=== PATIENT | male | born 2000 | race Caucasian/White ===

== ENCOUNTER 2018-11-05 20:35 | Emergency (ER) | payer MEDICAID, OTHER ==
[~2018-11-05] VITALS: Ht 162.6 cm; Wt 48.2 kg
[~2018-11-05 20:35] MED LIST: ESCI10TA PO
[2018-11-05] MEDS ORDERED: PERTUSS(ACELL),DIPH,TET VAC/PF 0.5 ML VIAL IM ONE (21:00)
[2018-11-05] MEDS ORDERED: HYDROCODONE/ACETAMINOPHEN 10-325 MG TABLET PO ONE (21:00)
[2018-11-05] MEDS ORDERED: POVIDONE-IODINE 10% 240 ML SOLUTION TP ONE (21:00)
[2018-11-05] MEDS ORDERED: POVIDONE-IODINE 10% 120 ML SOLUTION TP ONE (21:00)
[2018-11-05] MEDS ORDERED: CEPHALEXIN MONOHYDRATE 500 MG CAPSULE PO ONE (21:15)
[2018-11-05] MEDS ORDERED: BACITRACIN 0.9 GM PACKET OINTMENT TP ONE (21:45)
[2018-11-05 21:48] VITALS: BP 125/71
== END 2018-11-05 22:41 | disposition home or self-care (01) ==
LOC: EMS 20:36
DX: S61.411A Laceration without foreign body of right hand, initial encounter (principal); F41.9 Anxiety disorder, unspecified; F17.210 Nicotine dependence, cigarettes, uncomplicated; F12.90 Cannabis use, unspecified, uncomplicated; W22.8XXA Striking against or struck by other objects, initial encounter; Y93.89 Activity, other specified; Y92.89 Other specified places as the place of occurrence of the external cause; Y99.8 Other external cause status
CPT/HCPCS: 12002; 90471; 90715

== ENCOUNTER 2018-11-22 22:06 | Emergency (ER) | payer OTHER ==
[~2018-11-22] VITALS: Ht 162.6 cm; Wt 50.9 kg
[2018-11-23 01:32] VITALS: BP 115/82
== END 2018-11-23 02:43 | disposition home or self-care (01) ==
LOC: EMS 22:07
DX: S61.411D Laceration without foreign body of right hand, subsequent encounter (principal); F41.9 Anxiety disorder, unspecified; F12.90 Cannabis use, unspecified, uncomplicated; F17.210 Nicotine dependence, cigarettes, uncomplicated; Z48.02 Encounter for removal of sutures; X58.XXXD Exposure to other specified factors, subsequent encounter

== ENCOUNTER 2021-03-11 12:52 | Emergency (ER) | payer MEDICAID, OTHER ==
[~2021-03-11] VITALS: Ht 162.6 cm; Wt 59.1 kg
[2021-03-11] MEDS ORDERED: HydrOXYzine PAMOATE 50 MG CAPSULE PO ONE (14:15)
[2021-03-11 15:32] VITALS: BP 125/73
== END 2021-03-11 15:34 | disposition home or self-care (01) ==
LOC: EMS 12:55
DX: F41.9 Anxiety disorder, unspecified (principal); R06.00 Dyspnea, unspecified; F17.210 Nicotine dependence, cigarettes, uncomplicated; F12.90 Cannabis use, unspecified, uncomplicated
CPT/HCPCS: 71045; 93005; 99283

== ENCOUNTER 2022-01-04 21:49 | Inpatient (IN) | payer MEDICAID, OTHER ==
[~2022-01-04] VITALS: Ht 162.6 cm; Wt 54.0 kg
[2022-01-04 23:33] LABS: BASOPHILS % (AUTO) 0.5 % (0.0-2.0); EOSINOPHILS % (AUTO) 0.7 % (1.0-6.0); HEMATOCRIT 38.7 % (41-53); LYMPHOCYTES # (AUTO) 2.3 K/uL (1.0-4.8); LYMPHOCYTES % (AUTO) 22.7 % (22.0-44.0); MEAN CORPUSCULAR HEMOGLOBIN 26.8 pg (26.0-34.0); MEAN CORPUSCULAR HGB CONC 33.7 G/dL (31.0-37.0); MEAN CORPUSCULAR VOLUME 80 fL (80-100); MONOCYTES # (AUTO) 0.8 K/uL (0.1-1.0); MONOCYTES % (AUTO) 8.2 % (2.0-9.0); NEUTROPHILS # (AUTO) 6.8 K/uL (1.8-7.7); NEUTROPHILS % (AUTO) 67.9 % (40.0-70.0); PLATELET COUNT (AUTO) 421 K/uL (150-450); RED BLOOD CELL COUNT(AUTO) 4.87 MIL/uL (4.50-5.90); RED CELL DISTRIBUTION WIDTH 13.3 % (11.5-14.5)
[2022-01-04 23:44] LABS: ANION GAP 5 mmol/L (8-16); CALCIUM, TOTAL 8.9 mg/dL (8.8-10.5); CARBON DIOXIDE 31 mmol/L (22-29); CHLORIDE 98 mmol/L (98-107); CREATININE 1.08 mg/dL (0.60-1.30); GLOMERULAR FILTR. RATE CALC > 60 mL/min (>60); GLUCOSE,RANDOM 209 mg/dL (70-110); POTASSIUM 3.7 mmol/L (3.5-5.1); SODIUM SERUM 134 mmol/L (136-145); UREA NITROGEN, BLOOD 12 mg/dL (7-18)
[2022-01-04 23:51] LABS: ALANINE AMINOTRANSFERASE 8 U/L (12-78); ALBUMIN 4.1 g/dL (3.4-5.0); ALKALINE PHOSPHATASE 66 U/L (46-116); ASPARTATE AMINOTRANSFERASE 10 U/L (15-37); BILIRUBIN,TOTAL 0.4 mg/dL (0.1-1.0); TOTAL PROTEIN, SERUM 7.4 g/dL (6.4-8.2)
[2022-01-05] MEDS ORDERED: HALOPERIDOL 5 MG TABLET PO ONE (02:15)
[2022-01-05] MEDS ORDERED: HALOPERIDOL 5 MG TABLET PO PRN (04:00)
[2022-01-05] MEDS ORDERED: ZOLPIDEM TARTRATE 10 MG TABLET PO PRN (04:00)
[2022-01-05 04:18] LABS: COVID AG,FIA SOURCE NASOPHARYNGEAL
[2022-01-05] MEDS ORDERED: MAGNESIUM HYDROXIDE SUSPENSION 30 ML UDCUP PO PRN (06:30)
[2022-01-05] MEDS ORDERED: MAG HYDROX/AL HYDROX/SIMETH ES 30 ML SUSPENSION UDCUP PO PRN (06:30)
[2022-01-05] MEDS ORDERED: OMEPRAZOLE 20 MG CAPSULE PO PRN (06:30)
[2022-01-05] MEDS ORDERED: DOCUSATE SODIUM 100 MG CAPSULE PO PRN (06:30)
[2022-01-05] MEDS ORDERED: CloNIDine HCL 0.1 MG TABLET PO PRN (06:30)
[2022-01-05] MEDS ORDERED: PETROLATUM,WHITE 28 GM JELLY TP PRN (06:30)
[2022-01-05] MEDS ORDERED: ONDANSETRON HCL 4 MG TABLET PO PRN (06:30)
[2022-01-05] MEDS ORDERED: LOPERAMIDE HCL 2 MG CAPSULE PO PRN (06:30)
[2022-01-05] MEDS ORDERED: BENZOCAINE/MENTHOL LOZENGE PO PRN (06:30)
[2022-01-05] MEDS ORDERED: ALBUTEROL SULFATE HFA 90 MCG/PUFF 8 GM INHALER IH PRN (06:30)
[2022-01-05] MEDS ORDERED: ACETAMINOPHEN 325 MG TABLET PO PRN (06:30)
[2022-01-05] MEDS ORDERED: IBUPROFEN 600 MG TABLET PO PRN (06:30)
[2022-01-05] MEDS ORDERED: BACITRACIN 28 GM OINTMENT TP PRN (06:30)
[2022-01-05 11:11] VITALS: BP 94/62
[2022-01-05] MEDS: LORazepam 2 MG TABLET PO PRN (11:50)
[2022-01-06 06:17] VITALS: BP 106/102
[2022-01-06 07:19] LABS: BASOPHILS % (AUTO) 0.6 % (0.0-2.0); HEMATOCRIT 38.8 % (41-53); HEMOGLOBIN 12.8 g/dL (13.5-17.5); LYMPHOCYTES # (AUTO) 3.1 K/uL (1.0-4.8); LYMPHOCYTES % (AUTO) 38.4 % (22.0-44.0); MEAN CORPUSCULAR HEMOGLOBIN 26.7 pg (26.0-34.0); MEAN CORPUSCULAR VOLUME 81 fL (80-100); MONOCYTES # (AUTO) 0.6 K/uL (0.1-1.0); MONOCYTES % (AUTO) 8.2 % (2.0-9.0); NEUTROPHILS # (AUTO) 4.1 K/uL (1.8-7.7); NEUTROPHILS % (AUTO) 51.8 % (40.0-70.0); PLATELET COUNT (AUTO) 384 K/uL (150-450); RED BLOOD CELL COUNT(AUTO) 4.81 MIL/uL (4.50-5.90); RED CELL DISTRIBUTION WIDTH 13.5 % (11.5-14.5)
[2022-01-06 07:32] LABS: HEMOGLOBIN A1C 4.6 % (3.8-5.6)
[2022-01-06 07:55] LABS: ALANINE AMINOTRANSFERASE 7 U/L (12-78); ALBUMIN 3.8 g/dL (3.4-5.0); ALKALINE PHOSPHATASE 54 U/L (46-116); ANION GAP 7 mmol/L (8-16); ASPARTATE AMINOTRANSFERASE 9 U/L (15-37); BILIRUBIN,TOTAL 0.7 mg/dL (0.1-1.0); CALCIUM, TOTAL 9.1 mg/dL (8.8-10.5); CARBON DIOXIDE 30 mmol/L (22-29); CHLORIDE 103 mmol/L (98-107); CREATININE 0.93 mg/dL (0.60-1.30); GLOMERULAR FILTR. RATE CALC > 60 mL/min (>60); GLUCOSE,RANDOM 79 mg/dL (70-110); PHOSPHORUS 4.5 mg/dL (2.5-4.9); SODIUM SERUM 140 mmol/L (136-145); UREA NITROGEN, BLOOD 10 mg/dL (7-18)
[2022-01-06] MEDS: LORazepam 2 MG TABLET PO PRN ×2 (08:28→12:58)
[2022-01-06 09:48] VITALS: BP 102/68
[2022-01-06 16:04] VITALS: BP 99/64
[2022-01-06] MEDS: RisperiDONE 3 MG TABLET PO SCH (16:23)
[2022-01-07 00:48] VITALS: BP 101/62
[2022-01-07] MEDS: LORazepam 2 MG TABLET PO PRN ×2 (06:34→19:24)
[2022-01-07 08:03] LABS: APPEARANCE,URINE CLEAR (CLEAR); BILIRUBIN,URINE NEGATIVE (NEGATIVE); GLUCOSE, URINE (UA) NEGATIVE (NEGATIVE); KETONES,URINE NEGATIVE (NEGATIVE); LEUKOCYTE ESTERASE ,URINE NEGATIVE (NEGATIVE); NITRATE,URINE NEGATIVE (NEGATIVE); OCCULT BLOOD,URINE NEGATIVE (NEGATIVE); PROTEIN,URINE NEGATIVE (NEGATIVE); SPECIFIC GRAVITIY, URINE 1.021 (1.003-1.030); UROBILINOGEN,URINE <=1.0 mg/dL (<=1.0)
[2022-01-07 08:05] VITALS: BP 106/65
[2022-01-07 08:09] LABS: AMPHET/METH SCREEN,URINE NEGATIVE (NEGATIVE); BARBITURATE SCREEN, URINE NEGATIVE (NEGATIVE); BENZODIAZEPINES SCREEN,URINE NEGATIVE (NEGATIVE); CANNABINOID SCREEN,URINE NEGATIVE (NEGATIVE); COCAINE SCREEN,URINE NEGATIVE (NEGATIVE); METHADONE SCREEN, URINE NEGATIVE (NEGATIVE); OPIATE SCREEN,URINE NEGATIVE (NEGATIVE)
[2022-01-07 08:13] LABS: PHENCYCLIDINE SCREEN,URINE NEGATIVE (NEGATIVE)
[2022-01-07] MEDS: RisperiDONE 3 MG TABLET PO SCH ×2 (08:32→16:02)
[2022-01-07 16:02] VITALS: BP 98/65
[2022-01-07 19:24] VITALS: BP 110/65
[2022-01-08 05:24] VITALS: BP 108/62
[2022-01-08 08:12] VITALS: BP_SYST 105; BP_SYST 93; BP_DIAS 51; BP_DIAS 65
[2022-01-08] MEDS: RisperiDONE 3 MG TABLET PO SCH ×2 (08:44→16:46)
[2022-01-08 16:08] VITALS: BP 100/61
[2022-01-08] MEDS: LORazepam 2 MG TABLET PO PRN (18:40)
[2022-01-08 19:17] VITALS: BP 110/74
[2022-01-09 06:05] VITALS: BP 106/68
[2022-01-09] MEDS: RisperiDONE 3 MG TABLET PO SCH ×2 (08:17→16:20)
[2022-01-09 08:33] VITALS: BP 101/66
[2022-01-09] MEDS: LORazepam 2 MG TABLET PO PRN (11:11)
[2022-01-09] MEDS ORDERED: RISP3TAB35 PO (15:38)
[2022-01-09 16:09] VITALS: BP 105/70
[2022-01-09] MEDS ORDERED: DIVA-112 PO (16:18)
== END 2022-01-09 18:38 | disposition home or self-care (01) | DRG 750 ==
LOC: EMS 21:49 → B2S 01-05 05:00
PROVIDERS: ADMIT Psychiatry & Neurology Psychiatry; ATTEND Psychiatry & Neurology Psychiatry
DX: F25.9 Schizoaffective disorder, unspecified (principal); F12.90 Cannabis use, unspecified, uncomplicated; F19.10 Other psychoactive substance abuse, uncomplicated; G47.00 Insomnia, unspecified; K59.00 Constipation, unspecified; Z91.14 Patient's other noncompliance with medication regimen; Z71.6 Tobacco abuse counseling
CPT/HCPCS: 80053; 81003; 83036; 83735; 84100; 85025; 93005; 99285; G0480; J3535

== ENCOUNTER 2022-07-26 23:31 | Inpatient (IN) | payer MEDICAID ==
[~2022-07-26] VITALS: Ht 152.4 cm; Wt 43.5 kg
[~2022-07-26 23:31] MED LIST changes: +DIVA-112 PO; -ESCI10TA PO; +RISP3TAB35 PO
[2022-07-27 01:32] LABS: BASOPHILS % (AUTO) 0.4 % (0.0-2.0); EOSINOPHILS % (AUTO) 0.3 % (1.0-6.0); HEMOGLOBIN 12.8 g/dL (13.5-17.5); LYMPHOCYTES # (AUTO) 1.5 K/uL (1.0-4.8); LYMPHOCYTES % (AUTO) 10.8 % (22.0-44.0); MEAN CORPUSCULAR HEMOGLOBIN 26.4 pg (26.0-34.0); MEAN CORPUSCULAR HGB CONC 32.8 G/dL (31.0-37.0); MEAN CORPUSCULAR VOLUME 81 fL (80-100); MONOCYTES % (AUTO) 7.2 % (2.0-9.0); NEUTROPHILS # (AUTO) 11.1 K/uL (1.8-7.7); NEUTROPHILS % (AUTO) 81.3 % (40.0-70.0); PLATELET COUNT (AUTO) 452 K/uL (150-450); RED BLOOD CELL COUNT(AUTO) 4.85 MIL/uL (4.50-5.90); RED CELL DISTRIBUTION WIDTH 12.8 % (11.5-14.5)
[2022-07-27 01:40] LABS: ANION GAP 6 mmol/L (8-16); CALCIUM, TOTAL 9.2 mg/dL (8.8-10.5); CARBON DIOXIDE 32 mmol/L (22-29); CHLORIDE 104 mmol/L (98-107); CREATININE 1.14 mg/dL (0.60-1.30); GLUCOSE,RANDOM 100 mg/dL (70-110); POTASSIUM 3.3 mmol/L (3.5-5.1); SODIUM SERUM 142 mmol/L (136-145); UREA NITROGEN, BLOOD 14 mg/dL (7-18)
[2022-07-27 01:46] LABS: ALANINE AMINOTRANSFERASE 10 U/L (12-78); ALBUMIN 3.9 g/dL (3.4-5.0); ALKALINE PHOSPHATASE 60 U/L (46-116); ASPARTATE AMINOTRANSFERASE 10 U/L (15-37); BILIRUBIN,TOTAL 0.3 mg/dL (0.1-1.0); TOTAL PROTEIN, SERUM 7.1 g/dL (6.4-8.2)
[2022-07-27 01:49] LABS: GLOMERULAR FILTR. RATE CALC > 60 mL/min (>60)
[2022-07-27] MEDS ORDERED: POTASSIUM CHLORIDE 20 MEQ ER TABLET PO ONE (07:45)
[2022-07-27 09:09] LABS: COVID AG,FIA SOURCE NASAL SWAB
[2022-07-27 10:57] VITALS: BP 100/56
[2022-07-27] MEDS: RisperiDONE 3 MG TABLET PO SCH (16:14)
[2022-07-27] MEDS: DIVALPROEX SODIUM 500 MG DR TABLET PO SCH (16:14)
[2022-07-27] MEDS: LORazepam 2 MG TABLET PO PRN (17:31)
[2022-07-28 08:56] VITALS: BP 98/55
[2022-07-28] MEDS: RisperiDONE 3 MG TABLET PO SCH ×2 (08:58→16:18)
[2022-07-28] MEDS: DIVALPROEX SODIUM 500 MG DR TABLET PO SCH ×2 (08:58→16:18)
[2022-07-28 16:21] VITALS: BP 96/58
[2022-07-28] MEDS: ZOLPIDEM TARTRATE 10 MG TABLET PO PRN (20:15)
[2022-07-29 08:30] VITALS: BP 98/59
[2022-07-29] MEDS: RisperiDONE 3 MG TABLET PO SCH ×2 (09:39→16:35)
[2022-07-29] MEDS: DIVALPROEX SODIUM 500 MG DR TABLET PO SCH ×2 (09:39→16:35)
[2022-07-29] MEDS: LORazepam 2 MG TABLET PO PRN ×2 (16:03→21:47)
[2022-07-29 16:39] VITALS: BP 99/60
[2022-07-29] MEDS: ZOLPIDEM TARTRATE 10 MG TABLET PO PRN (21:47)
[2022-07-30 07:13] LABS: BASOPHILS % (AUTO) 0.7 % (0.0-2.0); EOSINOPHILS % (AUTO) 0.8 % (1.0-6.0); HEMATOCRIT 36.3 % (41-53); LYMPHOCYTES # (AUTO) 2.6 K/uL (1.0-4.8); LYMPHOCYTES % (AUTO) 32.1 % (22.0-44.0); MEAN CORPUSCULAR HEMOGLOBIN 26.6 pg (26.0-34.0); MEAN CORPUSCULAR HGB CONC 32.9 G/dL (31.0-37.0); MEAN CORPUSCULAR VOLUME 81 fL (80-100); MONOCYTES # (AUTO) 0.7 K/uL (0.1-1.0); MONOCYTES % (AUTO) 9.2 % (2.0-9.0); NEUTROPHILS # (AUTO) 4.6 K/uL (1.8-7.7); NEUTROPHILS % (AUTO) 57.2 % (40.0-70.0); PLATELET COUNT (AUTO) 396 K/uL (150-450); RED CELL DISTRIBUTION WIDTH 12.6 % (11.5-14.5)
[2022-07-30 08:00] VITALS: BP 102/52
[2022-07-30] MEDS: DIVALPROEX SODIUM 500 MG DR TABLET PO SCH ×2 (08:06→17:13)
[2022-07-30] MEDS: RisperiDONE 3 MG TABLET PO SCH ×2 (08:06→17:13)
[2022-07-30 19:04] VITALS: BP 112/69
[2022-07-30] MEDS: HALOPERIDOL 5 MG TABLET PO PRN (20:35)
[2022-07-30] MEDS: ZOLPIDEM TARTRATE 10 MG TABLET PO PRN (20:35)
[2022-07-31] MEDS: RisperiDONE 3 MG TABLET PO SCH ×2 (08:04→16:23)
[2022-07-31] MEDS: DIVALPROEX SODIUM 500 MG DR TABLET PO SCH ×2 (08:04→16:23)
[2022-07-31 08:58] VITALS: BP 98/71
[2022-07-31 14:15] VITALS: BP 116/70
[2022-07-31] MEDS: LORazepam 2 MG TABLET PO PRN (14:18)
[2022-07-31 16:20] VITALS: BP 121/76
[2022-08-01 08:16] VITALS: BP 97/71
[2022-08-01] MEDS: RisperiDONE 3 MG TABLET PO SCH ×2 (08:39→16:39)
[2022-08-01] MEDS: DIVALPROEX SODIUM 500 MG DR TABLET PO SCH ×2 (08:39→16:39)
[2022-08-01 16:04] VITALS: BP 92/60
[2022-08-02] MEDS: RisperiDONE 3 MG TABLET PO SCH ×2 (08:58→17:14)
[2022-08-02] MEDS: DIVALPROEX SODIUM 500 MG DR TABLET PO SCH ×2 (08:58→17:14)
[2022-08-02 09:57] VITALS: BP 92/56
[2022-08-02] MEDS: LORazepam 2 MG TABLET PO PRN (15:05)
[2022-08-02 17:53] VITALS: BP 97/64
[2022-08-02] MEDS: ZOLPIDEM TARTRATE 10 MG TABLET PO PRN (21:48)
[2022-08-03] MEDS: RisperiDONE 3 MG TABLET PO SCH ×2 (08:43→16:56)
[2022-08-03] MEDS: DIVALPROEX SODIUM 500 MG DR TABLET PO SCH ×2 (08:43→16:56)
[2022-08-03 09:43] VITALS: BP 92/56
[2022-08-03] MEDS: LORazepam 2 MG TABLET PO PRN (15:02)
[2022-08-03 17:39] VITALS: BP 94/62
[2022-08-03] MEDS ORDERED: RisperiDONE MICROSPHERES 50 MG/2 ML SYRINGE IM ONE (18:00)
[2022-08-03] MEDS: ZOLPIDEM TARTRATE 10 MG TABLET PO PRN (21:20)
[2022-08-03 21:57] LABS: COVID AG,FIA SOURCE NASAL SWAB
[2022-08-04 08:34] VITALS: BP 92/60
[2022-08-04] MEDS: DIVALPROEX SODIUM 500 MG DR TABLET PO SCH ×2 (12:05→16:15)
[2022-08-04] MEDS: RisperiDONE 3 MG TABLET PO SCH ×2 (12:05→16:15)
[2022-08-04] MEDS: LORazepam 2 MG TABLET PO PRN (13:23)
[2022-08-04] MEDS: HALOPERIDOL 5 MG TABLET PO PRN (13:24)
[2022-08-04] MEDS ORDERED: RISPC50 IM (14:28)
[2022-08-04] MEDS ORDERED: DIVA-112 PO (14:28)
[2022-08-04 16:33] VITALS: BP 90/55
[2022-08-17] MEDS ORDERED: RisperiDONE MICROSPHERES 50 MG/2 ML SYRINGE IM SCH (09:00)
== END 2022-08-04 18:38 | disposition home or self-care (01) | DRG 750 ==
LOC: EMS 23:34 → 3EC 07-27 06:41
PROVIDERS: ADMIT Psychiatry & Neurology Psychiatry; ATTEND Psychiatry & Neurology Psychiatry
DX: F25.9 Schizoaffective disorder, unspecified (principal); R45.850 Homicidal ideations; R45.851 Suicidal ideations; E87.6 Hypokalemia; Z20.822 Contact with and (suspected) exposure to COVID-19; F41.9 Anxiety disorder, unspecified; G47.00 Insomnia, unspecified; K21.9 Gastro-esophageal reflux disease without esophagitis; F19.10 Other psychoactive substance abuse, uncomplicated; Z72.0 Tobacco use
CPT/HCPCS: 80053; 80164; 84132; 85025; 99285; G0480; J2794

== ENCOUNTER 2022-08-06 00:12 | Emergency (ER) | payer MEDICAID, OTHER ==
[~2022-08-06] VITALS: Ht 162.6 cm; Wt 50.0 kg
[~2022-08-06 00:12] MED LIST changes: -RISP3TAB35 PO; +RISPC50 IM
[2022-08-06 01:20] VITALS: BP 116/65
== END 2022-08-06 01:44 | disposition home or self-care (01) ==
LOC: EMS 00:13
DX: R07.9 Chest pain, unspecified (principal); R20.2 Paresthesia of skin; F32.9 Major depressive disorder, single episode, unspecified; F41.9 Anxiety disorder, unspecified; F10.20 Alcohol dependence, uncomplicated; F12.90 Cannabis use, unspecified, uncomplicated; F17.210 Nicotine dependence, cigarettes, uncomplicated
CPT/HCPCS: 93005; 99283

== ENCOUNTER 2022-08-08 22:26 | Emergency (ER) | payer OTHER ==
[~2022-08-08] VITALS: Ht 162.6 cm; Wt 44.1 kg
[2022-08-08 22:31] VITALS: BP 100/65
[2022-08-08 23:19] LABS: COVID AG,FIA SOURCE NASAL SWAB
[2022-08-08 23:38] LABS: INFLUENZA TYPE A NEGATIVE FOR TYPE A (NEGATIVE); INFLUENZA TYPE B NEGATIVE FOR TYPE B (NEGATIVE)
== END 2022-08-09 | disposition home or self-care (01) ==
LOC: EMS 22:27
DX: R06.02 Shortness of breath (principal); F41.9 Anxiety disorder, unspecified; F32.A Depression, unspecified; F20.9 Schizophrenia, unspecified; F17.210 Nicotine dependence, cigarettes, uncomplicated; F12.90 Cannabis use, unspecified, uncomplicated; Z20.822 Contact with and (suspected) exposure to COVID-19
CPT/HCPCS: 71045; 87804; 99284

== ENCOUNTER 2023-08-23 15:29 | Emergency (ER) | payer OTHER ==
[~2023-08-23] VITALS: Ht 162.6 cm; Wt 55.9 kg
[2023-08-23] MEDS ORDERED: TRAZ-252 PO (16:00)
[2023-08-23] MEDS ORDERED: OLAN10TA74 PO (16:00)
[2023-08-23] MEDS ORDERED: HYDR-4527 PO (16:00)
[2023-08-23 16:15] VITALS: TEMP 98
[2023-08-23 17:44] LABS: ALCOHOL, URINE DRUG SCREEN NEGATIVE (NEGATIVE); AMPHET/METH SCREEN,URINE NEGATIVE (NEGATIVE); BARBITURATE SCREEN, URINE NEGATIVE (NEGATIVE); BENZODIAZEPINES SCREEN,URINE NEGATIVE (NEGATIVE); CANNABINOID SCREEN,URINE NEGATIVE (NEGATIVE); COCAINE SCREEN,URINE NEGATIVE (NEGATIVE); METHADONE SCREEN, URINE NEGATIVE (NEGATIVE); OPIATE SCREEN,URINE NEGATIVE (NEGATIVE); PHENCYCLIDINE SCREEN,URINE NEGATIVE (NEGATIVE)
[2023-08-23 17:55] LABS: BASOPHILS % (AUTO) 0.3 % (0.0-2.0); EOSINOPHILS % (AUTO) 0.2 % (1.0-6.0); HEMATOCRIT 42.1 % (41-53); HEMOGLOBIN 13.9 g/dL (13.5-17.5); LYMPHOCYTES # (AUTO) 1.8 K/uL (1.0-4.8); LYMPHOCYTES % (AUTO) 15.6 % (22.0-44.0); MEAN CORPUSCULAR HEMOGLOBIN 26.7 pg (26.0-34.0); MEAN CORPUSCULAR HGB CONC 33.1 G/dL (31.0-37.0); MEAN CORPUSCULAR VOLUME 81 fL (80-100); MONOCYTES # (AUTO) 0.7 K/uL (0.1-1.0); MONOCYTES % (AUTO) 5.9 % (2.0-9.0); PLATELET COUNT (AUTO) 395 K/uL (150-450); RED BLOOD CELL COUNT(AUTO) 5.21 MIL/uL (4.50-5.90); RED CELL DISTRIBUTION WIDTH 12.6 % (11.5-14.5); WHITE BLOOD COUNT (AUTO) 11.5 K/uL (4.5-11.0)
[2023-08-23 18:00] LABS: ALCOHOL, BLOOD (SERUM) < 3 mg/dL (0-10); ANION GAP 2 mmol/L (8-16); CALCIUM, TOTAL 9.3 mg/dL (8.8-10.5); CARBON DIOXIDE 33 mmol/L (22-29); CHLORIDE 101 mmol/L (98-107); CREATININE 1.22 mg/dL (0.60-1.30); GLOMERULAR FILTR. RATE CALC > 60 mL/min (>60); GLUCOSE,RANDOM 93 mg/dL (70-110); POTASSIUM 4.1 mmol/L (3.5-5.1); SODIUM SERUM 136 mmol/L (136-145); UREA NITROGEN, BLOOD 16 mg/dL (7-18)
[2023-08-23 18:06] LABS: ALANINE AMINOTRANSFERASE 20 U/L (12-78); ALBUMIN 4.1 g/dL (3.4-5.0); ALKALINE PHOSPHATASE 96 U/L (46-116); ASPARTATE AMINOTRANSFERASE 20 U/L (15-37); BILIRUBIN,TOTAL 0.3 mg/dL (0.1-1.0); TOTAL PROTEIN, SERUM 8.3 g/dL (6.4-8.2)
[2023-08-23 18:28] LABS: COVID AG,FIA SOURCE NASAL SWAB
[2023-08-23 18:35] LABS: SARS-COV2 (COVID) ANTIGEN,FIA Negative (Negative)
[2023-08-23 19:45] VITALS: BP 104/48; PULSE 80; RESP 16
== END 2023-08-23 19:45 | disposition home or self-care (01) ==
LOC: EMS 15:34
DX: S60.221A Contusion of right hand, initial encounter (principal); F20.9 Schizophrenia, unspecified; F41.9 Anxiety disorder, unspecified; F32.A Depression, unspecified; F17.210 Nicotine dependence, cigarettes, uncomplicated; F12.90 Cannabis use, unspecified, uncomplicated; Z20.822 Contact with and (suspected) exposure to COVID-19; X58.XXXA Exposure to other specified factors, initial encounter; Y93.89 Activity, other specified; Y92.89 Other specified places as the place of occurrence of the external cause; Y99.8 Other external cause status
CPT/HCPCS: 99285; 87426; 80053; 85025; 36415; 73130; 80307; G0480

== ENCOUNTER 2023-11-03 21:41 | Inpatient (IN) | payer MEDICAID ==
[~2023-11-03] VITALS: Ht 160 cm; Wt 56.7 kg
[~2023-11-03 21:41] MED LIST changes: -DIVA-112 PO; +HYDR-4527 PO; +OLAN10TA74 PO; -RISPC50 IM; +TRAZ-252 PO
[2023-11-03 23:49] VITALS: BP 106/80; PULSE 96; RESP 18; TEMP 98.4
[2023-11-03 23:55] VITALS: BP 105/72; PULSE 98; RESP 16; TEMP 98.4; O2SAT 99
[2023-11-03 23:57] LABS: GLUCOMETER DEV NAME(LOC) POC.BV; POC SARS-COV2 AG, FIA NEGATIVE (NEGATIVE)
[2023-11-04] MEDS: ZOLPIDEM TARTRATE 10 MG TABLET PO PRN (00:05)
[2023-11-04] MEDS: LORazepam 2 MG TABLET PO PRN (00:06)
[2023-11-04] MEDS: HALOPERIDOL 5 MG TABLET PO PRN (07:57)
[2023-11-04 09:18] LABS: BASOPHILS % (AUTO) 0.6 % (0.0-2.0); EOSINOPHILS % (AUTO) 1.4 % (1.0-6.0); HEMATOCRIT 42.9 % (41-53); HEMOGLOBIN 14.1 g/dL (13.5-17.5); LYMPHOCYTES # (AUTO) 3.2 K/uL (1.0-4.8); LYMPHOCYTES % (AUTO) 32.5 % (22.0-44.0); MEAN CORPUSCULAR HEMOGLOBIN 27.5 pg (26.0-34.0); MEAN CORPUSCULAR VOLUME 83 fL (80-100); MONOCYTES % (AUTO) 9.8 % (2.0-9.0); NEUTROPHILS # (AUTO) 5.6 K/uL (1.8-7.7); NEUTROPHILS % (AUTO) 55.7 % (40.0-70.0); PLATELET COUNT (AUTO) 428 K/uL (150-450); RED BLOOD CELL COUNT(AUTO) 5.15 MIL/uL (4.50-5.90); RED CELL DISTRIBUTION WIDTH 14.6 % (11.5-14.5)
[2023-11-04 09:40] LABS: ALCOHOL, BLOOD (SERUM) < 3 mg/dL (0-10)
[2023-11-04 09:43] LABS: ALANINE AMINOTRANSFERASE 12 U/L (12-78); ALBUMIN 3.7 g/dL (3.4-5.0); ALKALINE PHOSPHATASE 78 U/L (46-116); ANION GAP 8 mmol/L (8-16); ASPARTATE AMINOTRANSFERASE 17 U/L (15-37); BILIRUBIN,TOTAL 0.3 mg/dL (0.1-1.0); CARBON DIOXIDE 31 mmol/L (22-29); CHLORIDE 100 mmol/L (98-107); CHOL/HDL RATIO 2.7 (4.2-7.3); CHOLESTEROL 150 mg/dL (131-200); FREE T4 (FREE THYROXINE) 1.09 ng/dL (0.76-1.46); GLOMERULAR FILTR. RATE CALC > 60 mL/min (>60); GLUCOSE,RANDOM 81 mg/dL (70-110); HDL CHOLESTEROL 55 mg/dL (40-60); HEMOGLOBIN A1C 4.3 % (3.8-5.6); LDL CHOL (CALC.) 84 mg/dL (0-130); SODIUM SERUM 139 mmol/L (136-145); THYROID STIMULATING HORMONE 1.51 uIU/mL (0.36-3.74); TOTAL PROTEIN, SERUM 6.9 g/dL (6.4-8.2); TRIGLYCERIDES 57 mg/dL (15-150); UREA NITROGEN, BLOOD 11 mg/dL (7-18)
[2023-11-04 12:21] VITALS: BP 109/58; PULSE 106; RESP 16; TEMP 97.7; O2SAT 97
[2023-11-04] MEDS: OLANZapine 10 MG TABLET PO SCH (16:13)
[2023-11-04] MEDS: TraZODone HCL 50 MG TABLET PO PRN (20:47)
[2023-11-04 20:50] VITALS: BP 123/69; PULSE 96; RESP 18; TEMP 97.7; O2SAT 97
[2023-11-05] MEDS ORDERED: CLIN30GE22 TP (11:10)
[2023-11-05] MEDS ORDERED: HYDR-4808 PO (11:10)
[2023-11-05] MEDS ORDERED: TRET20CR32 TP (11:10)
[2023-11-05 11:17] VITALS: PULSE 87; RESP 16; TEMP 97.7; O2SAT 96
[2023-11-05] MEDS: TraZODone HCL 50 MG TABLET PO SCH (20:15)
[2023-11-05 21:31] VITALS: BP 102/62; PULSE 92; RESP 18; TEMP 97.6; O2SAT 97
[2023-11-05 21:35] VITALS: BP 108/62
[2023-11-06 10:17] VITALS: BP 100/64; PULSE 88; RESP 17; TEMP 98; O2SAT 98
[2023-11-06 18:40] VITALS: BP 125/75; PULSE 113; RESP 20; TEMP 97.8
[2023-11-06 18:55] VITALS: BP_SYST 110; PULSE 97; RESP 18; TEMP 98.5
[2023-11-06 23:08] VITALS: BP 113/68; PULSE 93; RESP 18; TEMP 97.8; O2SAT 97
[2023-11-07 09:28] VITALS: BP 112/63; PULSE 72; RESP 16; TEMP 98.4; O2SAT 97
[2023-11-07 21:23] VITALS: BP 116/70; PULSE 74; RESP 17; TEMP 98.2; O2SAT 98
[2023-11-08 08:11] VITALS: BP 102/69; PULSE 75; RESP 19; TEMP 98.1; O2SAT 98
[2023-11-08 09:20] LABS: PH,URINE DRUG SCREEN 6.5 (5.0-8.0)
[2023-11-08 09:28] LABS: ALCOHOL, URINE DRUG SCREEN NEGATIVE (NEGATIVE); AMPHET/METH SCREEN,URINE NEGATIVE (NEGATIVE); BARBITURATE SCREEN, URINE NEGATIVE (NEGATIVE); BENZODIAZEPINES SCREEN,URINE NEGATIVE (NEGATIVE); CANNABINOID SCREEN,URINE NEGATIVE (NEGATIVE); COCAINE SCREEN,URINE NEGATIVE (NEGATIVE); METHADONE SCREEN, URINE NEGATIVE (NEGATIVE); OPIATE SCREEN,URINE NEGATIVE (NEGATIVE); PHENCYCLIDINE SCREEN,URINE NEGATIVE (NEGATIVE)
[2023-11-08 21:04] VITALS: BP 118/71; PULSE 97; RESP 18; TEMP 98; O2SAT 97
[2023-11-09 10:36] VITALS: BP 100/65; PULSE 90; RESP 16; TEMP 97.6; O2SAT 98
[2023-11-09] MEDS: INFLUENZA VIRUS VACCINE QVS 2023-24 (6MO+)/PF 60 MCG/0.5 ML SYRINGE IM. ONE (12:04)
[2023-11-10 05:35] VITALS: BP 110/72; PULSE 86; RESP 18; TEMP 98
[2023-11-10 08:03] VITALS: BP 111/63; PULSE 83; RESP 17; TEMP 98; O2SAT 99
[2023-11-10 20:04] VITALS: BP 108/86; PULSE 94; RESP 18; TEMP 97.7; O2SAT 98
[2023-11-11 08:05] VITALS: BP 104/60; PULSE 75; RESP 18; TEMP 97.6; O2SAT 98
[2023-11-11] MEDS ORDERED: NICOTINE 14 MG/24 HOUR PATCH TD PRN (18:45)
[2023-11-11] MEDS ORDERED: CloNIDine HCL 0.1 MG TABLET PO PRN (18:45)
[2023-11-11] MEDS ORDERED: LOPERAMIDE HCL 2 MG CAPSULE PO PRN (18:45)
[2023-11-11] MEDS ORDERED: ONDANSETRON HCL 4 MG TABLET PO PRN (18:45)
[2023-11-11] MEDS ORDERED: IBUPROFEN 400 MG TABLET PO PRN (18:45)
[2023-11-11] MEDS ORDERED: DOCUSATE SODIUM 100 MG CAPSULE PO PRN (18:45)
[2023-11-11] MEDS ORDERED: MAGNESIUM HYDROXIDE SUSPENSION 30 ML UDCUP PO PRN (18:45)
[2023-11-11] MEDS ORDERED: GuaiFENesin/D-METHORPHAN [SUGAR-FREE] 200-20MG/10 ML SYRUP UDCUP PO PRN (18:45)
[2023-11-11] MEDS ORDERED: PETROLATUM,WHITE 28 GM JELLY TP PRN (18:45)
[2023-11-11] MEDS ORDERED: ALBUTEROL SULFATE HFA 90 MCG/PUFF 8 GM INHALER IH PRN (18:45)
[2023-11-11] MEDS ORDERED: MAG HYDROX/ALUMINUM HYD/SIMETH ES 30 ML SUSPENSION UDCUP PO PRN (18:45)
[2023-11-11 20:06] VITALS: BP 104/57; PULSE 78; RESP 18; TEMP 98.2; O2SAT 96
[2023-11-11 20:50] VITALS: RESP 18
[2023-11-11] MEDS: ACETAMINOPHEN 325 MG TABLET PO PRN (20:59)
[2023-11-11 21:50] VITALS: RESP 18
[2023-11-12 08:30] VITALS: BP 109/68; PULSE 85; RESP 18; TEMP 96.9; O2SAT 95
[2023-11-12] MEDS: TraZODone HCL 100 MG TABLET PO SCH (20:18)
[2023-11-12] MEDS: OLANZapine 7.5 MG TABLET PO SCH (20:18)
[2023-11-12 21:47] VITALS: BP 101/68; PULSE 65; RESP 16; TEMP 97.6; O2SAT 95
[2023-11-13 08:21] VITALS: BP 108/68; PULSE 78; RESP 18; TEMP 97.8
== END 2023-11-13 18:23 | disposition left against medical advice (07) | DRG 750 ==
LOC: B3A 23:09 → B2S 11-06 23:11
PROVIDERS: ADMIT Psychiatry & Neurology Psychiatry; ATTEND Psychiatry & Neurology Psychiatry
PROC: GZHZZZZ Group Psychotherapy (ICD-10-PCS; principal; 2023-11-04)
PROC: GZ56ZZZ Individual Psychotherapy, Supportive (ICD-10-PCS; 2023-11-04)
DX: F20.0 Paranoid schizophrenia (principal); F10.10 Alcohol abuse, uncomplicated; F15.90 Other stimulant use, unspecified, uncomplicated; G47.00 Insomnia, unspecified; F12.90 Cannabis use, unspecified, uncomplicated; Z20.822 Contact with and (suspected) exposure to COVID-19; Z53.29 Procedure and treatment not carried out because of patient's decision for other reasons; Y90.9 Presence of alcohol in blood, level not specified; Z79.899 Other long term (current) drug therapy; Z91.51 Personal history of suicidal behavior
CPT/HCPCS: 80053; 80061; 80307; 83036; 84439; 84443; 85025; G0480

== ENCOUNTER 2024-10-19 06:59 | Emergency (ER) | payer MEDICAID, OTHER ==
[~2024-10-19] VITALS: Ht 165.1 cm; Wt 68.2 kg
[2024-10-19 07:33] LABS: COVID AG,FIA SOURCE NASAL SWAB
[2024-10-19 08:05] LABS: SARS-COV2 (COVID) ANTIGEN,FIA Negative (Negative)
[2024-10-19 08:12] LABS: INFLUENZA TYPE B NEGATIVE FOR TYPE B (NEGATIVE)
[2024-10-19 08:17] LABS: INFLUENZA TYPE A POSITIVE FOR TYPE A (NEGATIVE)
[2024-10-19] MEDS: ONDANSETRON HCL 4 MG/2 ML VIAL IVP ONE (11:15)
[2024-10-19] MEDS: SODIUM CHLORIDE 0.9% 500 ML IV ONE (11:16)
[2024-10-19] MEDS: IBUPROFEN 600 MG TABLET PO ONE (11:46)
[2024-10-19] MEDS: ACETAMINOPHEN 650 MG/20.3 ML SOLUTION UDCUP PO ONE (11:46)
[2024-10-19] MEDS: ALBUTEROL SULFATE 2.5 MG/0.5 ML NEB SOLUTION NEB ONE (12:46)
[2024-10-19] MEDS: IPRATROPIUM BROMIDE 0.5 MG/2.5 ML NEB SOLUTION NEB ONE (12:46)
[2024-10-19 13:00] VITALS: PULSE 126; RESP 16; O2SAT 97
[2024-10-19 13:04] VITALS: PULSE 126; RESP 16; O2SAT 95
[2024-10-19] MEDS ORDERED: OSEL75CA45 PO (14:36)
[2024-10-19] MEDS ORDERED: AZIT250T9 PO (14:40)
[2024-10-19 15:52] VITALS: BP 115/70; PULSE 95; RESP 16; TEMP 99; O2SAT 95
== END 2024-10-19 15:55 | disposition home or self-care (01) ==
LOC: EMS 06:59
DX: J10.1 Influenza due to other identified influenza virus with other respiratory manifestations (principal); J98.4 Other disorders of lung; F20.9 Schizophrenia, unspecified; F41.9 Anxiety disorder, unspecified; F32.A Depression, unspecified; F12.90 Cannabis use, unspecified, uncomplicated; F17.210 Nicotine dependence, cigarettes, uncomplicated; Z20.822 Contact with and (suspected) exposure to COVID-19
CPT/HCPCS: 99285; 96374; 71045; 96361; 87426; 87804; 94640; J2405; J7040

== ENCOUNTER 2024-10-24 01:49 | Emergency (ER) | payer OTHER ==
[~2024-10-24] VITALS: Ht 162.6 cm; Wt 67.7 kg
[~2024-10-24 01:49] MED LIST changes: +AZIT250T9 PO; -HYDR-4527 PO; -OLAN10TA74 PO; +OSEL75CA45 PO; -TRAZ-252 PO
[2024-10-24 02:01] VITALS: BP 116/67; PULSE 104; RESP 18; TEMP 98.6; O2SAT 99
[2024-10-24] MEDS: ONDANSETRON 4 MG TABLET PO ONE (02:54)
[2024-10-24] MEDS ORDERED: ONDA-104 PO (03:59)
[2024-10-24] MEDS: OXYMETAZOLINE HCL 0.05% 15 ML NASAL SPRAY NASAL ONE (04:02)
[2024-10-27] MEDS ORDERED: BENZ-227 PO (22:34)
[2024-10-27] MEDS ORDERED: DIPH50CA37 PO (22:34)
[2024-10-27] MEDS ORDERED: GUAIFDM PO (22:34)
== END 2024-10-24 04:17 | disposition home or self-care (01) ==
LOC: EMS 01:54
DX: R11.2 Nausea with vomiting, unspecified (principal); R09.81 Nasal congestion; F41.9 Anxiety disorder, unspecified; F32.A Depression, unspecified; F17.210 Nicotine dependence, cigarettes, uncomplicated; F12.90 Cannabis use, unspecified, uncomplicated; F20.9 Schizophrenia, unspecified
CPT/HCPCS: 99283; Q0162

== ENCOUNTER → 2024-10-27 | Emergency (ER) | payer OTHER ==
[~2024-10-27] VITALS: Ht 160 cm; Wt 72.7 kg
[~2024-10-27] MED LIST changes: -AZIT250T9 PO; +BENZ-227 PO; +DIPH50CA37 PO; +GUAIFDM PO; +ONDA-104 PO
[2024-10-27 18:44] VITALS: TEMP 98.6
[2024-10-27 19:25] LABS: COVID AG,FIA SOURCE NASAL SWAB
[2024-10-27 19:36] LABS: INFLUENZA TYPE A NEGATIVE FOR TYPE A (NEGATIVE); INFLUENZA TYPE B NEGATIVE FOR TYPE B (NEGATIVE)
[2024-10-27 19:38] LABS: SARS-COV2 (COVID) ANTIGEN,FIA Negative (Negative)
[2024-10-27 21:24] VITALS: BP 112/72; PULSE 81; RESP 18; O2SAT 96
[2024-10-27] MEDS: ACETAMINOPHEN 500 MG TABLET PO ONE (22:56)
[2024-10-27] MEDS: GuaiFENesin/D-METHORPHAN [SUGAR-FREE] 200-20MG/10 ML SYRUP UDCUP PO ONE (22:56)
[2024-10-27] MEDS: DiphenhydrAMINE HCL 25 MG CAPSULE PO ONE (22:56)
== END | disposition home or self-care (01) ==
LOC: EMS 18:31
DX: J10.1 Influenza due to other identified influenza virus with other respiratory manifestations (principal); J20.9 Acute bronchitis, unspecified; R11.10 Vomiting, unspecified; F12.90 Cannabis use, unspecified, uncomplicated; F17.210 Nicotine dependence, cigarettes, uncomplicated; Z20.822 Contact with and (suspected) exposure to COVID-19
CPT/HCPCS: 71045; 87804; 99284